=== PATIENT | female | born 1995 | race Caucasian/White ===

== ENCOUNTER 2017-01-05 18:10 | Emergency (ER) | payer OTHER ==
[~2017-01-05] VITALS: Ht 165.1 cm; Wt 65.5 kg
[2017-01-05 19:23] LABS: HEMATOCRIT 43.3 % (36.0-46.0); MCH 27.3 PG (29.0-34.0); MCHC 33.5 G/DL (30.0-36.0); MCV 81.4 FL (83-99); MEAN PLAT.VOLUME 9.4 uM^3 (9.5-12.4); PLATELET COUNT 173 K/uL (156-360); RBC DIS.WIDTH-CV 13.3 % (11.8-14.6); RBC DIS.WIDTH-SD 39.8 % (39-53); RED BLOOD COUNT 5.32 M/uL (3.80-5.20); WHITE BLOOD COUNT 5.8 K/uL (4.1-10.2)
[2017-01-05 19:33] LABS: CHLORIDE 102 mEq/L (99-109); POTASSIUM 3.7 mEq/L (3.7-5.4); SODIUM 137 mEq/L (136-147)
[2017-01-05 19:35] LABS: GLUCOSE 105 mg/dL (70-99)
[2017-01-05 19:36] LABS: ANION GAP 12 MEQ/L (2-14)
[2017-01-05 19:37] LABS: TOTAL BILIRUBIN 1.1 mg/dL (0.0-1.0)
[2017-01-05 19:39] LABS: ALKALINE PHOSPHATASE 99 IU/L (3-129); GFR ESTIMATE (CALCULATED) > 59 mL/min/
[2017-01-05 19:40] LABS: UREA NITROGEN (BUN) 11 mg/dL (9-23)
[2017-01-05 19:42] LABS: LIPASE 6 U/L (1.0-51.0)
[2017-01-05 19:48] LABS: QUANTITATIVE HCG < 4.0 MIU/ML
[2017-01-05 22:18] LABS: ADD MIUA? YES; BILIRUBIN NEGATIVE; BLOOD NEGATIVE; COLOR YELLOW ((YELLOW)); GLUCOSE (STRIP) NEGATIVE; KETONES 20; LEUKOCYTES NEGATIVE; NITRITE NEGATIVE; PROTEIN (STRIP) 30; SPECIFIC GRAVITY 1.023 (1.000-1.030)
[2017-01-05 22:49] LABS: BACTERIA NONE SEEN /HPF; EPITHELIAL CELLS RARE /HPF; HYALINE CASTS 0-5 /LPF; MUCUS 1+ /LPF; RED BLOOD CELLS 0-5 /HPF (0-5); UCUL ADDED? NO; WHITE BLOOD CELLS 0-5 /HPF (0-5)
[2017-01-05 22:57] LABS: INTERNAL CONTROL VALID? YES; MONOSPOT (MONONUCLEOSIS SEROL) POSITIVE
[2017-01-05] MEDS ORDERED: ZOFRAN ODT4 MG PO (23:04)
[2017-01-06 00:42] VITALS: BP 101/54
== END 2017-01-06 00:57 | disposition home or self-care (01) ==
LOC: EME 18:10
PROVIDERS: Physician Assistant
DX: B27.90 Infectious mononucleosis, unspecified without complication (principal); R50.9 Fever, unspecified; R10.9 Unspecified abdominal pain
CPT/HCPCS: 71020; 74176; 80053; 81003; 83690; 84702; 85027; 86308; 87651 90; 99281; 99285; J2270; J2405; J7030